=== PATIENT | male | born 2000 | race Asian ===

== ENCOUNTER → 2020-11-27 13:11 | Outpatient (CLI) | payer OTHER, SELFPAY ==
[2020-11-27] MEDS: COVID-19 VACC #1, MRNA(MOD) 100 MCG/0.5 ML VIAL IM (13:21)
== END ==
PROVIDERS: Visit Provider Internal Medicine
DX: Z23 Encounter for immunization (principal)
CPT/HCPCS: 0011A; 91301

== ENCOUNTER → 2020-12-25 12:10 | Outpatient (CLI) | payer OTHER, SELFPAY ==
[2020-12-25] MEDS: COVID-19 VACC #2, MRNA(MOD) 100 MCG/0.5 ML VIAL IM (12:14)
== END ==
PROVIDERS: Visit Provider Internal Medicine
DX: Z23 Encounter for immunization (principal)
CPT/HCPCS: 0012A; 91301